=== PATIENT | female | born 1965 | race Caucasian/White ===

== ENCOUNTER 2016-09-27 21:44 | Emergency (ER) | payer BC, OTHER ==
[~2016-09-27] VITALS: Ht 172.7 cm; Wt 113.8 kg
[~2016-09-27 21:44] MED LIST: FLUO20SO3 PO; IBUP-232 PO; PROM25SU8 PO
[2016-09-27 21:50] VITALS: BP 138/95; PULSE 99; RESP 16; TEMP 99.7; O2SAT 97
[2016-09-27] MEDS ORDERED: PROZ40CA PO (22:00)
[2016-09-27] MEDS ORDERED: CYAN1TAB24 PO (22:00)
[2016-09-27] MEDS ORDERED: MEDR4PAK PO (22:49)
[2016-09-27] MEDS ORDERED: ROBA500T PO (22:49)
--- NOTE | 2016-09-27 22:49 | PD ---
HPI Chief Complaint: Musculoskeletal Complaint Time Seen by Provider: 22:20 Travel History International Travel<30 days: No Contact w/Intl Traveler<30days: No Traveled to known affect area: No History of Present Illness HPI 50-year-old female presents emergency department for evaluation of low back pain. Patient reports she has history of lumbar herniated disc and has had multiple "flares" of back pain in the past. She reports she sustained a low back injury while at work approximately 2 months ago. She is currently physical therapy for this. Patient reports the pain is localized to the lumbar spine, nonradiating, worse with movement and relieved with rest, severity 7 out of 10. She denies fever, chills, incontinence, saddle anesthesia, numbness/ weakness/tingling in extremities. She reports steroids have improved symptoms in the past. She would like to avoid narcotic medications if possible. PFSH Past Medical History Depression: Yes Musculoskeletal: Yes (Bulging/herniated disc) Tetanus Vaccination: < 5 Years Influenza Vaccination: No ?: Not Menopausal: Yes Past Surgical History Section: Yes (X's 2) Hysterectomy: Yes Social History Alcohol Use: No Tobacco Use: No Substance Use: No Allergies-Medications (Allergen,Severity, Reaction): Coded Allergies: Codeine (Verified Adverse Reaction, Severe, Vomiting, 09/27/16) Reported Meds & Prescriptions Reported Meds & Active Scripts Active Robaxin (Methocarbamol) 500 Mg Tab 500 Mg PO TID PRN Medrol Dosepak (Methylprednisolone) 4 Mg Dspk 4 Mg PO DIRECTED Per Pharmacist direction Reported B12 (Cyanocobalamin) 1,000 Mcg Tab 5,000 Mcg PO DAILY Prozac (Fluoxetine HCl) 40 Mg Cap 40 Mg PO DAILY Review of Systems Except as stated in HPI: all other systems reviewed are Neg Physical Exam Narrative GENERAL: Alert, well-appearing female no acute distress. SKIN: Focused skin assessment warm/dry. HEAD: Atraumatic. Normocephalic. EYES: Pupils equal and round. No scleral icterus. No injection or drainage. ENT: No nasal bleeding or discharge. Mucous membranes pink and moist. NECK: Trachea midline. No JVD. CARDIOVASCULAR: Regular rate and rhythm. No murmur appreciated. RESPIRATORY: No accessory muscle use. Clear to auscultation. Breath sounds equal bilaterally. GASTROINTESTINAL: Abdomen soft, non-tender, nondistended. Hepatic and splenic margins not palpable. MUSCULOSKELETAL: No obvious deformities. No clubbing. No cyanosis. No edema. BACK: No CVA tenderness. No rash. Generalized tenderness in the lumbar and paraspinous muscle region. NEUROLOGICAL: Awake and alert. No obvious cranial nerve deficits. Motor grossly within normal limits. Normal speech. 2+ DTRs. 5 out of 5 strength in lower extremities. Ambulating without difficulty. PSYCHIATRIC: Appropriate mood and affect; insight and judgment normal. Data Data Last Documented VS Vital Signs Date Time Temp Pulse Resp B/P Pulse Ox O2 Delivery O2 Flow Rate FiO2 09/27/16 21:50 99.7 99 16 138/95 97 Orders Ketorolac Inj (Toradol Inj) (09/27/16 23:00) [facility] Medical Decision Making Medical Screen Exam Complete: Yes Emergency Medical Condition: Yes Differential Diagnosis Herniated disc, lumbar strain, lumbago Narrative Course 50-year-old female presents emergency department for evaluation of low back pain. Patient originally injured the back approximately 2 months ago. Since that time she's had several episodes where the pain has "flared". She reports this pain is similar to those episodes. She reports steroids worked in the past. On exam she has generalized lumbar pain. Her neuro exam is normal. Patient has scheduled follow-up and is currently an physical therapy. She is instructed to continue with her current plan of care. Return precautions discussed. Patient verbalizes understanding. Diagnosis Primary Impression: Low back pain Qualified Code: M54.5 - Low back pain, unspecified back pain laterality, unspecified chronicity, with sciatica presence unspecified Referrals: Orthopedist Primary Care Physician Additional Instructions: Taking the medications as prescribed. Keep her follow-up appointment with orthopedic. Follow-up with her primary care doctor as needed. Return to emergency department if new or worsening symptoms. Scripts Methocarbamol (Robaxin)500 Mg [id number] Mg PO TID PRN (MUSCLE SPASM) #12 TAB Prov:Johnna Hernandez 09/27/16 Methylprednisolone Dosepak (Medrol Dosepak)4 Mg Dspk4 Mg PO DIRECTED #1 DSPK Ref 0 Per Pharmacist direction Prov:Johnna Hernandez 09/27/16 Disposition: 01 DISCHARGE HOME Condition: Stable Johnna Hernandez Sep 27, 2016 22:49
[2016-09-27] MEDS ORDERED: KETOROLAC TROMETHAMINE 60 MG/2 ML (IM) VIAL IM ONE (23:00)
== END 2016-09-27 22:54 | disposition home or self-care (01) ==
LOC: PHEFT 21:44
DX: M54.5 Low back pain (principal)
CPT/HCPCS: 96372; 99284; J1885